=== PATIENT | female | born 1995 | race Asian ===

== ENCOUNTER 2019-09-18 22:34 | Emergency (ER) | payer OTHER ==
[~2019-09-18] VITALS: Ht 165.1 cm; Wt 62.1 kg
[2019-09-18 22:52] VITALS: Ht 165.1 cm; Wt 62.1 kg
[2019-09-19 02:21] VITALS: BP 107/66
== END 2019-09-19 02:22 | disposition home or self-care (01) ==
LOC: ED 22:34
DX: O21.8 Other vomiting complicating pregnancy (principal); Z3A.17 17 weeks gestation of pregnancy
CPT/HCPCS: J2405